=== PATIENT | male | born 2000 | race Caucasian/White ===

== ENCOUNTER 2022-05-21 10:17 | Emergency (ER) | payer OTHER ==
[2022-05-21 10:33] VITALS: BMI 27.4
[2022-05-21 12:08] LABS: HEMATOCRIT 48.8 % (35.4-49); HEMOGLOBIN 16.4 GM/dL (11.7-16.9); MCH 29.8 pg (25.7-33.7); MCHC 33.7 g/dl (32.0-35.9); MEAN CELL VOLUME 88.6 fl (80-96); MEAN PLT VOLUME 8.5 fl (7.5-11.1); PLATELET COUNT 230 10^3/uL (134-434); RDW 13.7 % (11.9-15.9); WHITE BLOOD COUNT 8.1 K/mm3 (4.0-10.0)
[2022-05-21 12:34] LABS: ALBUMIN 3.9 g/dl (3.4-5.0); BLOOD UREA NITROGEN 13.6 mg/dL (7-18); CALCIUM 9.3 mg/dL (8.5-10.1)
[2022-05-21 12:36] LABS: CREATININE 1.1 mg/dL (0.55-1.3)
[2022-05-21 12:39] LABS: BILIRUBIN,TOTAL 0.4 mg/dL (0.2-1); TOT PROT 7.8 g/dl (6.4-8.2)
[2022-05-21 13:39] LABS: ANISOCYTOSIS 0; HELMET CELLS 0; HOWELL-JOLLY BODIES 0; MACROCYTOSIS 0; OVALOCYTE 0; ROULEAU 0; SICKELED CELLS 0; TARGET CELLS 0; TEAR DROP CELLS 0; TOXIC GRANULATION 0
[2022-05-21 15:16] VITALS: TEMP 98.9
[2022-05-22 06:19] VITALS: BP 126/54; PULSE 94; RESP 18
== END 2022-05-22 11:27 | disposition home or self-care (01) ==
LOC: JER 10:17
DX: R45.81 Low self-esteem (principal); F32.A Depression, unspecified
CPT/HCPCS: 36415; 80053; 84443; 85025; 99283-25; C9803-CS; U0003; U0005